=== PATIENT | female | born 1970 | race Caucasian/White ===

== ENCOUNTER 2017-05-27 09:23 | Emergency (ER) | payer OTHER ==
[~2017-05-27 09:23] MED LIST: PERCOCET 5-3251 EACH PO
== END 2017-05-27 09:39 | disposition home or self-care (01) ==
LOC: ED 09:23
DX: Z00.8 Encounter for other general examination (principal)

== ENCOUNTER 2019-03-16 20:31 | Emergency (ER) | payer MEDICARE, OTHER ==
[~2019-03-16] VITALS: Ht 154.9 cm; Wt 59.0 kg
--- OUTSIDE RECORDS SUMMARY | ~2019-03-16 | XMS ---
Demographics + + + | Address | [address] | | | [place] [address] | + + + | Preferred Language | Unknown | + + + | Marital Status | Unknown | + + + | Evangelical Affiliation | Unknown | + + + | Race | Unknown | + + + | Ethnic Group | Unknown | + + + Author + + + | Author | [facility] | + + + | Organization | [facility] | + + + | Address | [address] | | | [place] [address] | + + + | Phone | | + + + Care Team Providers + + + + | Care Brake Press Operator Name | Role | Phone | + + + + Unavailable | Unavailable | + + + + PROBLEMS +---------+ + + +--------+ + + | Type | Condition | ICD9-CM | [id number] | Onset | Condition | SNOMED | | | | Code | Code | Dates | Status | Code | +---------+ + + +--------+ + + | Problem | Excessive/ | N92.1 | | | Active | [id number] | | | frequent | | | | | | | | menstruati | | | | | | | | on | | | | | | | | w/irregula | | | | | | | | r cycle | | | | | | +---------+ + + +--------+ + + ALLERGIES + + + + +---------+ | Substance | Reaction | Event Type | Date | Status | + + + + +---------+ | N.K.D.A. | Unknown | Non Drug | May, | Unknown | | | | Allergy | | | + + + + +---------+ SOCIAL HISTORY No smoking Hx information available PLAN OF CARE + +---------+ | Activity | Details | + +---------+ +---+ | | +---+ + + + | Follow Up | Wednesday06/14/2017 between 8am and 6pm | | | Reason:null | + + + VITAL SIGNS + + + + | Height | 62 in | 2017-06-06 | + + + + | Weight | 111.2 lbs | 2017-06-06 | + + + + | BMI | 20.34 kg/m2 | 2017-06-06 | + + + + | Heart Rate | 73 /min | 2017-06-06 | + + + + | Blood pressure systolic | 116 mm Hg | 2017-06-06 | + + + + | Blood pressure diastolic | 81 mm Hg | 2017-06-06 | + + + + MEDICATIONS + + + + + + + +--------+ | Medicati | Instruct | Dosage | Frequenc | Start | End Date | Duration | Status | | on | ions | | y | Date | | | | + + + + + + + +--------+ | Chantix | Orally | 1 tablet | 24h | | | | Active | | 0.5 MG | Once a | | | | | | | | | day | | | | | | | + + + + + + + +--------+ | Ibuprofe | Orally | 1 tablet | 8h | 13 Gibran, | 23 Gibran, | 10 | Active | | n 800 MG | Three | | | 2017 | 2016 | day(s) | | | | times a | | | | | | | | | day | | | | | | | + + + + + + + +--------+ RESULTS No Results PROCEDURES + + + + + | Procedure | Date Ordered | Related Diagnosis | Body Site | + + + + + | Est Level II | June 06, 2017 | | | | Limited | | | | + + + + + IMMUNIZATIONS No Known Immunizations"
--- OUTSIDE RECORDS SUMMARY | ~2019-03-16 | XMS ---
Demographics + + + | Address | [address] | | | [place] [address] | + + + | Preferred Language | Unknown | + + + | Marital Status | Unknown | + + + | Oriental Orthodox Affiliation | Unknown | + + + | Race | Unknown | + + + | Ethnic Group | Unknown | + + + Author + + + | Author | [facility] | + + + | Organization | [facility] | + + + | Address | [address] | | | [place] [address] | + + + | Phone | | + + + Care Team Providers + + + + | Care Roofer Helper Vinyl Coating Name | Role | Phone | + + + + Unavailable | Unavailable | + + + + PROBLEMS +---------+ + + +--------+ + + | Type | Condition | ICD9-CM | [id number] | Onset | Condition | SNOMED | | | | Code | Code | Dates | Status | Code | +---------+ + + +--------+ + + | Problem | Excessive/ | N92.1 | | | Active | [id number] | | | frequent | | | [...] + + + | Follow Up | 06/29/18 Reason:null | + + + VITAL SIGNS + + + + | Height | 62 in | 2017-06-14 | + + + + | Weight | 114 lbs | 2017-06-14 | + + + + | BMI | 20.85 kg/m2 | 2017-06-14 | + + + + | Temperature | 98.0 degrees Fahrenheit | 2017-06-14 | + + + + | Heart Rate | 71 /min | 2017-06-14 | + + + + | Blood pressure systolic | 108 mm Hg | 2017-06-14 | + + + + | Blood pressure diastolic | 75 mm Hg | 2017-06-14 | + + + + MEDICATIONS + + + + +--------+ + +--------+ | Medicati | Instruct | Dosage | Frequenc | Start | End Date | Duration | Status | | on | ions | | y | Date | | | | + + + + +--------+ + +--------+ | Chantix | Orally | 1 tablet | 24h | | | | Active | | 0.5 MG | Once a | | | | | | | | | day | | | | | | | + + + + +--------+ + +--------+ RESULTS No Results PROCEDURES + + + + + | Procedure | Date Ordered | Related Diagnosis | Body Site | + + + + + | Est Level III | June 14, 2017 | | | | Intermediate | | | | + + + + + | [facility] MED/CURRENT | June 14, 2017 | | | | MED MERGE | | | | + + + + + | DOC MEDS VERIFIED | June 14, 2017 | | | | W/PT OR RE | | | | + + + + + IMMUNIZATIONS No Known Immunizations"
--- OUTSIDE RECORDS SUMMARY | ~2019-03-16 | XMS ---
Demographics + + + | Address | [address] | | | [place] [address] | + + + | Preferred Language | Unknown | + + + | Marital Status | Unknown | + + + | Yarsani Affiliation | Unknown | + + + | Race | Unknown | + + + | Ethnic Group | Unknown | + + + Author + + + | Author | [facility] | + + + | Organization | [facility] | + + + | Address | [address] | | | [place] [address] | + + + | Phone | | + + + Care Team Providers + + + + | Care Hair Cutter Name | Role | Phone | + + + + Unavailable | Unavailable | + + + + PROBLEMS +---------+ + + +--------+ + + | Type | Condition | ICD9-CM | [id number] | Onset | Condition | SNOMED | | | | Code | Code | Dates | Status | Code | +---------+ + + +--------+ + + | Problem | Excessive/ | N92.1 | | | Active | [id number] | | | frequent | | | | | | | | menstruati | | | | | | | | on | | | | | | | | w/irregula | | | | | | | | r cycle | | | | | | +---------+ + + +--------+ + + ALLERGIES No Known Allergies SOCIAL HISTORY Never Assessed PLAN OF CARE + +---------+ | Activity | Details | + +---------+ +---+ | | +---+ + + + | Follow Up | prn Reason:null | + + + VITAL SIGNS + + + + | Height | 62 in | 2017-08-04 | + + + + | Weight | 114 lbs | 2017-08-04 | + + + + | BMI | 20.85 kg/m2 | 2017-08-04 | + + + + | Temperature | 98.5 degrees Fahrenheit | 2017-08-04 | + + + + | Heart Rate | 62 /min | 2017-08-04 | + + + + | Blood pressure systolic | 111 mm Hg | 2017-08-04 | + + + + | Blood pressure diastolic | 77 mm Hg | 2017-08-04 | + + + + MEDICATIONS + [...] +--------+ RESULTS No Results PROCEDURES + + +--------+ + | Procedure | Date Ordered | Result | Body Site | + + +--------+ + | [facility] MED/CURRENT | Aug 04, 2017 | | | | MED MERGE | | | | + + +--------+ + | DOC MEDS VERIFIED | Aug 04, 2017 | | | | W/PT OR RE | | | | + + +--------+ + IMMUNIZATIONS No Known Immunizations MEDICAL (GENERAL) HISTORY + + +--------+ | Type | Description | Date | + + +--------+ | Medical History | Arthritis | | + + +--------+ | Medical History | migraine headaches | | | | (occasional) | | + + +--------+ | Surgical History | tubal ligation, | 1991 | | | Laparoscopic | | + + +--------+ | Surgical History | Foot Surgery right | 1989's | + + +--------+ | Surgical History | laparoscopic RSO, | 05/2015 | | | hysteroscopy with D&C | | + + +--------+ | Hospitalization History | childbirth x 3 | | + + +--------+"
--- OUTSIDE RECORDS SUMMARY | ~2019-03-16 | XMS ---
Demographics + + + | Address | [address] | | | [place] [address] | + + + | Preferred Language | Unknown | + + + | Marital Status | Unknown | + + + | Yarsanism Affiliation | Unknown | + + + | Race | Unknown | + + + | Ethnic Group | Unknown | + + + Author + + + | Author | [facility] | + + + | Organization | [facility] | + + + | Address | [address] | | | [place] [address] | + + + | Phone | | + + + Care Team Providers + + + + | Care Lift Supervisor Name | Role | Phone | + + + + Unavailable | Unavailable | + + + + PROBLEMS +---------+ + + +--------+ + + | Type | Condition | ICD9-CM | [id number] | Onset | Condition | SNOMED | | | | Code | Code | Dates | Status | Code | +---------+ + + +--------+ + + | Problem | Excessive/ | N92.1 | | | Active | [id number] | | | frequent | | | [...] | + + + + +---------+ | N.K.DJeanieA. | Unknown | Non Drug | Jun, | Unknown | | | | Allergy | | | + + + + +---------+ SOCIAL HISTORY No smoking Hx information available PLAN OF CARE + +---------+ | Activity | Details | + +---------+ +---+ | | +---+ + + + | Follow Up | 2 Weeks Reason:null | + + + VITAL SIGNS + + + + | Height | 62 in | 2017-06-30 | + + + + | Weight | 113 lbs | 2017-06-30 | + + + + | BMI | 20.67 kg/m2 | 2017-06-30 | + + + + | Temperature | 98.6 degrees Fahrenheit | 2017-06-30 | + + + + | Heart Rate | 72 /min | 2017-06-30 | + + + + | Blood pressure systolic | 122 mm Hg | 2017-06-30 | + + + + | Blood pressure diastolic | 79 mm Hg | 2017-06-30 | + + + + MEDICATIONS + [...] + + | Est Level III | Jun 30, 2017 | | | | Intermediate | | | | + + + + + | [facility] MED/CURRENT | Jun 30, 2017 | | | | MED MERGE | | | | + + + + + | DOC MEDS VERIFIED | Jun 30, 2017 | | | | W/PT OR RE | | | | + + + + + IMMUNIZATIONS No Known Immunizations"
== END 2019-03-16 22:28 | disposition home or self-care (01) ==
LOC: ED 20:31
DX: R20.2 Paresthesia of skin (principal); F17.200 Nicotine dependence, unspecified, uncomplicated
CPT/HCPCS: 80053; 85025; 99284

== ENCOUNTER 2020-06-27 08:14 | Day surgery (SDC) | payer MEDICARE, OTHER ==
[~2020-06-27] VITALS: Ht 154.9 cm; Wt 55.3 kg
--- NOTE | 2020-06-28 06:21 | OR ---
[facility] [address] [place], [place] [address] Signed DATE OF OPERATION: 06/27/2020 SURGEON: Jayy Bravo MD PREOPERATIVE DIAGNOSIS: Screening. POSTOPERATIVE DIAGNOSES: 1. Minimal sigmoid diverticulosis. 2. A 3 mm polyps x3 at 4 cm. 3. A 4 mm polyp at 15 cm/rectosigmoid junction. PROCEDURE: Colonoscopy with hot biopsy. ESTIMATED BLOOD LOSS: None. INDICATIONS: Michaelle is a 49-year-old female, asked to see me for her initial screening colonoscopy. She has no lower GI complaints. There is no family history of colon cancer or polyps. In the office, I gave her a pamphlet on colonoscopy and we looked at that together along with the risks including, but not limited to gas bloating, crampy abdominal pain, bleeding, perforation requiring surgery, and missed diagnosis. She also understands the need for IV conscious sedation. She had expressed understanding and wished to proceed. DESCRIPTION OF PROCEDURE: Michaelle was taken into our endoscopy suite and placed in the left lateral decubitus position. She was given IV sedation with 6 mg of Versed and 100 mcg of fentanyl. A digital rectal exam was performed and this was unremarkable. The adult colonoscope was introduced and advanced all around into the cecum under direct visualization of camera without difficulty. Her prep was quite good. The scope was slowly withdrawn. She slight of build and took just a minute to get through the sigmoid colon. The above-mentioned polyps were visualized and easily removed with the help of hot biopsy forceps. She does have diverticula in the sigmoid colon. They were minimal in size, minimal in number and scattered about. Upon retroflexion of scope, there was no additional pathology noted above the anal canal. After this, the gas was suctioned out and the colonoscope removed. Michaelle tolerated the procedure quite well. RECOMMENDATIONS: Electronically Signed By: JAYY BRAVO MD 06/28/20 0621 PATIENT NAME: MICHAELLE BENTLEY OPERATIVE REPORT DATE OF : 68 REPORT #: [id number] PHYSICIAN: JAYY BRAVO MD PCP: OPAL WIGGINS PA-C REPORT IS CONFIDENTIAL AND NOT TO BE RELEASED WITHOUT AUTHORIZATION [address] [address] Signed I will see Michaelle back in my office in 7 to 10 days to review her results. MD MING Hinkle/MODL /[id number] cc: MD Opal Hinkle PA-C Copies: JAYY BRAVO MD, CHLOE K PA-C ~ Electronically Signed By: JAYY BRAVO MD 06/28/20 0621 PATIENT NAME: MICHAELLE BENTLEY OPERATIVE REPORT DATE OF : 68 REPORT #: [id number] PHYSICIAN: JAYY BRAVO MD PCP: OPAL WIGGINS PA-C REPORT IS CONFIDENTIAL AND NOT TO BE RELEASED WITHOUT AUTHORIZATION
--- NOTE | 2020-06-28 11:39 | PATH ---
[facility] [address] [facility] [place], [place] [address] Signed SPECIMEN(S): A COLON POLYP AT 4 CM SPECIMEN(S): B COLON POLYP AT 15 CM SPECIMEN SOURCE: A. COLON POLYP AT 4 CM B. COLON POLYP AT 15 CM CLINICAL HISTORY: Screening. Colon polyps, diverticulosis. MICROSCOPIC DESCRIPTION: Histologic sections of all submitted blocks are examined by light microscopy. These findings, together with the gross examination, support the pathologic diagnosis. FINAL PATHOLOGIC DIAGNOSIS: A. Colon, polyp at 4 cm, polypectomy: - Fragments of hyperplastic polyp. - Negative for dysplasia or malignancy. B. Colon, polyp at 15 cm, polypectomy: - Hyperplastic polyp. - Negative for dysplasia or malignancy. NAL:cml:C2NR GROSS DESCRIPTION: Two specimens are received in two containers, labeled "LR." A. The specimen, labeled "LR, 1," and designated on the requisition "anus polypectomy," is received in formalin and consists of three bowers soft tissue fragments that measure 0.2-0.4 cm in greatest dimension. The specimen is entirely submitted in cassette (A1). B. The specimen, labeled "LR, 2," and designated on the requisition "colon polypectomy 15 cm," is received in formalin and consists of two bowers soft tissue fragments that measure 0.2 cm in greatest dimension. The specimen is entirely submitted in cassette (B1). AI (under the direct supervision of a pathologist) The Gross Description was prepared using a voice recognition system. The report was reviewed for accuracy; however, sound-alike word errors, addition and/or deletions may occur. If there is any question about this report, please contact Client Services. PERFORMING LABORATORY: The technical component was performed by [employer], Josué Navarromimi Carlos, PATIENT NAME: KATE BENTLEY PATHOLOGY DATE OF : 68 REPORT #: [id number] PHYSICIAN: MOLINA HURT PCP: RACHNA WIGGINS PA-C REPORT IS CONFIDENTIAL AND NOT TO BE RELEASED WITHOUT AUTHORIZATION [facility] [address] [place], [place] [address] [place] [address] (Complaint Clerk: Jackie Kerns MD; CLIA# [id number]). Professional interpretation was performed by [facility], [address] [address] (CLIA# [id number]). Diagnostician: Brisa Guzman MD Pathologist Electronically Signed 06/28/2020 Copies: ~ PATIENT NAME: KATE BENTLEY PATHOLOGY DATE OF : 68 REPORT #: [id number] PHYSICIAN: MOLINA HURT PCP: RACHNA WIGGINS PA-C REPORT IS CONFIDENTIAL AND NOT TO BE RELEASED WITHOUT AUTHORIZATION
== END 2020-06-27 11:00 | disposition home or self-care (01) ==
LOC: DS 08:14
PROVIDERS: Colon & Rectal Surgery
PROC: 0DBE8ZZ Excision of Large Intestine, Via Natural or Artificial Opening Endoscopic (ICD-10-PCS; 2020-06-27)
PROC: 0DBN8ZZ Excision of Sigmoid Colon, Via Natural or Artificial Opening Endoscopic (ICD-10-PCS; principal; 2020-06-27 09:45)
DX: Z12.11 Encounter for screening for malignant neoplasm of colon (principal); K63.5 Polyp of colon; K57.30 Diverticulosis of large intestine without perforation or abscess without bleeding
CPT/HCPCS: G0500; J2250; J3010; J7121

== ENCOUNTER 2022-07-24 18:47 | Emergency (ER) | payer OTHER ==
[~2022-07-24] VITALS: Ht 154.9 cm; Wt 55.3 kg
== END 2022-07-24 22:16 | disposition home or self-care (01) ==
LOC: ED 18:47
DX: S93.401A Sprain of unspecified ligament of right ankle, initial encounter (principal); S93.601A Unspecified sprain of right foot, initial encounter; W01.0XXA Fall on same level from slipping, tripping and stumbling without subsequent striking against object, initial encounter; M19.90 Unspecified osteoarthritis, unspecified site; F17.200 Nicotine dependence, unspecified, uncomplicated; Z88.0 Allergy status to penicillin
CPT/HCPCS: 73610; 73630; 99283-25; A9270